=== PATIENT | female | born 1985 | race Caucasian/White ===

== ENCOUNTER → 2017-06-10 | Outpatient (CLI) | payer OTHER | LOC: FIMAGING 11:17 | PROVIDERS: ATTEND Advanced Practice Midwife | DX: Z31.69 Encounter for other general counseling and advice on procreation (principal) ==

== ENCOUNTER 2017-11-16 17:00 | Inpatient (IN) | payer OTHER ==
[2017-11-16] MEDS ORDERED: LR 1,000 ML IV PRN (17:59)
[2017-11-16] MEDS ORDERED: OLIVE OIL 118 ML BTL MISC PRN (17:59)
[2017-11-16] MEDS ORDERED: EPSOM SALT 454 GM TP PRN (17:59)
[2017-11-16] MEDS ORDERED: MISOPROSTOL 200 MCG TAB PR PRN (17:59)
[2017-11-16] MEDS ORDERED: TERBUTALINE SULFATE 1 MG/ML VIAL IV PRN (17:59)
[2017-11-16] MEDS ORDERED: LIDOCAINE 1% 300 MG/30 ML SDV SC PRN (17:59)
[2017-11-16] MEDS ORDERED: OXYTOCIN/NORMAL SALINE 1,000 ML IV PRN (17:59)
[2017-11-16] MEDS ORDERED: AMMONIA AROMATIC 1 EACH AMP IH ONE (18:08)
[2017-11-16] MEDS ORDERED: LIDOCAINE 1% 300 MG/30 ML SDV ONE (18:08)
[2017-11-16] MEDS ORDERED: OLIVE OIL 118 ML BTL ONE (18:08)
[2017-11-16] MEDS ORDERED: TERBUTALINE SULFATE 1 MG/ML VIAL ONE (18:08)
[2017-11-16] MEDS ORDERED: OXYTOCIN 10 UNIT/ML VIAL ONE (18:09)
[2017-11-16] MEDS ORDERED: MISOPROSTOL 200 MCG TAB ONE (18:09)
[2017-11-16 18:20] LABS: PLATELET COUNT 234 10^3/uL (150-400)
[2017-11-16] MEDS ORDERED: ONDANSETRON 4 MG/2 ML VIAL IVP PRN (18:29)
--- NOTE | 2017-11-16 19:21 | PDGENHP ---
History and Physical - Chief Complaint contractions and leakage of fluid - History of Present Illness 32 at 39w2d by LMP c/w 6w4d US, here with contractions and loss of fluid at 1500 today. Has been having contractions intermittently since 0500. Intensity increases after SROM at 1500. No ssx PIH. Uncomplicated course. Hx of MTHFR mutation homozygous. Per MFM - no hx of thrombosis, so no recommendation for lovenox. Was on baby asa earlier in and 1400mcg Folate. Here with male partner, Deion, and 2 other females. Has some anxiety about prior delivery, had epidural, pushed for 3 hours, and had forceps assisted delivery with many tears which made for a long recovery. Desires natural delivery. labs: Innatal and standard panel neg 12.8 / 36.9 plts 232 A neg Ab scr neg gluc 70 RPR NR Rub Imm HbsAG neg HIV neg GC neg afp neg 1 hr GTT 87 History Information - Allergies/Home Medication List Allergies/Adverse Reactions: penicillin Allergy (Verified 03/08/15 17:30) Home Medications: 1 tab PO DAILY 09/28/15 [Last Taken 11/15/17 12:00] I have personally reviewed and updated: family history, medical history, social history, surgical history Past Medical History: MTHFR mutation homozygote, no hx of thrombosis. Hx of anxiety and was on Celexa - Past Medical History no pertinent PMH - Surgical History Additional surgical history: sinus surgery. wisdom teeth - Family History Positive for: diabetes type II (mat aunt), hypertension (mother and MGM) - Social History Smoking Status: Former smoker Alcohol Use: None Drug Use: None Review of Systems Review of Systems: Physical Exam Physical Exam: Pleasant, NAD when not antoni VSS afeb 36.2 96 135/59 Constitutional: appears nourished Ears, Nose, Mouth, Throat: moist mucous membranes, hearing normal Cardiovascular: regular rate and rhythym, no murmur, rub, or gallop Respiratory: clear to auscultation Gastrointestinal: other (gravid, fundus NT when not antoni) Genitourinary: other Skin: warm, normal color Musculoskeletal: full muscle strength Neurologic: AAOx3 Psychiatric: interacting appropriately Lab Data & Imaging Review 11/16/17 17:50 WBC 10.61 10^3/uL (3.80-9.50) H 11/16/17 17:50 RBC 4.23 10^6/uL (4.18-5.33) 11/16/17 17:50 Hgb 13.4 g/dL (12.6-16.3) 11/16/17 17:50 Hct 38.7 % (38.0-47.0) 11/16/17 17:50 MCV 91.5 fL (81.5-99.8) 11/16/17 17:50 MCH 31.7 pg (27.9-34.1) 11/16/17 17:50 MCHC 34.6 g/dL (32.4-36.7) 11/16/17 17:50 RDW 13.0 % (11.5-15.2) 11/16/17 17:50 Plt Count 234 10^3/uL (150-400) 11/16/17 17:50 MPV 10.3 fL (8.7-11.7) 11/16/17 17:50 Neut % (Auto) 68.4 % (39.3-74.2) 11/16/17 17:50 Lymph % (Auto) 20.3 % (15.0-45.0) 11/16/17 17:50 Castro % (Auto) 8.5 % (4.5-13.0) 11/16/17 17:50 Eos % (Auto) 1.4 % (0.6-7.6) 11/16/17 17:50 Baso % (Auto) 0.6 % (0.3-1.7) 11/16/17 17:50 Nucleat RBC Rel Count 0.0 % (0.0-0.2) 11/16/17 17:50 Absolute Neuts (auto) 7.27 10^3/uL (1.70-6.50) H 11/16/17 17:50 Absolute Lymphs (auto) 2.15 10^3/uL (1.00-3.00) 11/16/17 17:50 Absolute Monos (auto) 0.90 10^3/uL (0.30-0.80) H 11/16/17 17:50 Absolute Eos (auto) 0.15 10^3/uL (0.03-0.40) 11/16/17 17:50 Absolute Basos (auto) 0.06 10^3/uL (0.02-0.10) 11/16/17 17:50 Absolute Nucleated RBC 0.00 10^3/uL (0-0.01) 11/16/17 17:50 Immature Gran % 0.8 % (0.0-1.1) 11/16/17 17:50 Immature Gran # 0.08 10^3/uL (0.00-0.10) 11/16/17 17:50 Assessment & Plan Assessment: 32 at 39w2d in labor, uncomplicated course. Plan: Expectant mgmt - anticipate vaginal delivery
[2017-11-16] MEDS ORDERED: DOCUSATE SODIUM 100 MG CAP PO PRN (20:08)
[2017-11-16] MEDS ORDERED: SIMETHICONE 80 MG TAB CHEW PO PRN (20:08)
[2017-11-16] MEDS ORDERED: ACETAMINOPHEN 325 MG TAB PO PRN (20:08)
[2017-11-16] MEDS ORDERED: HYDROCORTISONE 0.5% CREAM TP PRN (20:08)
--- NOTE | 2017-11-16 20:13 | OBDEL ---
Info Type: Vaginal Presentation at Delivery: Vertex L&D Analgesia/Anesthesia Type: Local GBS+: No Intrapartum Medications: Generic Name Dose Route Start Last Admin Trade Name Freq PRN Reason Stop Dose Admin Lactated Ringer's 1,000 mls @ 0 mls/hr 11/16/17 17:59 11/16/17 19:46 Lr IV 11/17/17 17:58 1,000 mls PRN PRN Administration SEE PROTOCOL CONDITIONS Protocol Per Protocol Lidocaine HCl 300 mg 11/16/17 17:59 11/16/17 19:47 Lidocaine Hcl 1% SC 05/15/18 17:58 300 mg ONCE PRN Administration episiotomy [place] Oil 118 ml 11/16/17 17:59 11/16/17 19:38 Sweet Oil MISC 05/15/18 17:58 1 btl ONCE PRN Administration perineal massage Ondansetron HCl 4 mg 11/16/17 18:29 11/16/17 18:35 Zofran IVP 05/15/18 18:28 4 mg Q4HRS PRN Administration Nausea/Vomiting, Can't Take PO - Hospital Course Intrapartum: 11/16/17 20:10 Uncomplicated. Progressed naturally, AROM of forebag at 8 cm dilated. Indications for Delivery: Spontaneous Labor, SROM Vaginal Delivery - Delivery Provider Delivery Physician/CNM: Nicky Ortega - Labor and Delivery Onset of Contractions Date: 11/16/17 Onset of Contractions Time: 05:00 Onset of Contractions Type: Spontaneous Rupture of Membranes Date: 11/16/17 Rupture of Membranes Time: 15:00 Rupture of Membranes Type: Spontaneous Amniotic Fluid Color: Clear Dilation Complete Date: 11/16/17 Dilation Complete Time: 19:35 Placenta Delivery Date: 11/16/17 Placenta Delivery Time: 19:50 Total Hours of Labor: 14 Non-surgical Procedures: Amniotomy (of forebag) Laceration: 2nd Degree Repair: 3-0, Vicryl Vaginal Sponge Count Correct: Yes Vaginal Needle Count Correct: Yes Vaginal Sweep Performed: Yes EBL: 300 Delivery Events: None Delivery Comment: uncomplicated unmedicated delivery. Repair of 2nd degree lac after infiltration of 10ml of 1% lidocaine. - Medications Labor Augmentation/Induction Methods Used: None Data [place]: 11/21/17 Gestational Age: 39 week(s) and 2 day(s) Vazquez Delivery Date: 11/16/17 Delivery Time: 19:40 Sex of : Male Score (1 Min): 8 Score (5 Min): 9 Shoulder Dystocia Time Head Delivered: 19:39 Time Body Delivered: 19:40 ICD10 Worksheet Patient Problems: Problems Problem Status Onset (normal spontaneous vaginal delivery) Acute labor Acute - ICD10 Problem Qualifiers (1) (normal spontaneous vaginal delivery)
[2017-11-16] MEDS ORDERED: OXYTOCIN 10 UNIT/ML VIAL IV ONE (20:16)
[2017-11-16] MEDS: IBUPROFEN 600 MG TAB PO PRN (20:43)
[2017-11-17] MEDS: IBUPROFEN 600 MG TAB PO PRN ×2 (02:29→21:46)
--- NOTE | 2017-11-17 19:00 | OBPP ---
Progress Note Assessment/Plan: Assessment: PPD1 s/p . Doing very well, no acute issues. No post- labs ordered. Likely home tomorrow - RhoGam/MMR if indicated. Uncomplicated course. Hx of MTHFR mutation homozygous. Per MFM - no hx of thrombosis, so no recommendation for lovenox ante or PP. Was on baby asa earlier in and 1400mcg Folate. labs: Innatal and standard panel neg 12.8 / 36.9 plts 232 A neg Ab scr neg gluc 70 RPR NR Rub Imm HbsAG neg HIV neg GC neg afp neg 1 hr GTT 87 JM Subjective/ Course: 11/17/17 18:58 Laila and partner doing well in bed with baby this AM. going well. Pain well controlled, tolerating diet, up and around without issue. Would like to stay until tomorrow. Objective: 11/16/17 17:50 Patient ABO/Rh A NEGATIVE 11/16/17 17:50 Temp Pulse Resp BP Pulse Ox 35.9 C L 78 16 110/68 94 11/17/17 08:00 11/17/17 08:00 11/17/17 08:00 11/17/17 08:00 11/17/17 02:30 Uterine Position/Fundal Height: At Umbilicus Uterine Tone: Firm
[2017-11-18 08:22] VITALS: BP 95/66
--- NOTE | 2017-11-18 08:33 | OBGCSDC ---
General Delivery Information - General Info : 2 Para: 2 Abortions: 0 Type: Vaginal L&D Analgesia/Anesthesia Type: Local Admission Date: 11/16/17 Labs: Patient ABO/Rh A NEGATIVE 11/16/17 17:50 Hct 38.7 % (38.0-47.0) 11/16/17 17:50 - Hospital Course Intrapartum: 11/16/17 20:10 Uncomplicated. Progressed naturally, AROM of forebag at 8 cm dilated. : 11/17/17 18:58 Laila and partner doing well in bed with baby this AM. going well. Pain well controlled, tolerating diet, up and around without issue. Would like to stay until tomorrow. 11/18/17 08:32 S) Pt doing well, reports min pain and bleeding. she is ambulating and voiding without difficulty. She is . She desires discharge home today. O) VSS, afebrile constitutional: WNWF, A&Ox3 HEENT: normocephalic, atraumatic, supple Heart: RRR, No murmur Chest: CTA-B Abdomen: Soft, nontender Uterus: Firm at U-2 Lochia: Minimal rubra Perineum: Intact, healing well Extremities: Trace edema, and negative Vy's sign Neuro: Grossly normal A) 32 year-old S/P PPD#2 P) Discharge home today Continue Pelvic rest x6wks Discussed danger signs (infection, preeclampsia, depression, heavy bleeding, etc) RTO in 4/6 weeks 11/18/17 09:33 Vaginal - Delivery Provider Delivery Physician/CNM: Nicky Ortega - Diagnosis Labor: Spontaneous Rupture of Membranes Type: Spontaneous Amniotic Fluid Color: Clear Laceration: 2nd Degree Repair: 3-0, Vicryl Delivery Events: None - Procedures Non-surgical Procedures: Amniotomy (of forebag) - Delivery Non-surgical Procedures: Amniotomy (of forebag) EBL: 300 Data [place]: 11/21/17 Gestational Age: 39 week(s) and 4 day(s) Vazquez Delivery Date: 11/16/17 Delivery Time: 19:40 Sex of Infant: Male Weight (gm): 3916 kg Score (1 Min): 8 Score (5 Min): 9 Discharge Information - Discharge Information Condition: Good Instruction/Follow Up: See Instruction Sheet (Instructed on routine PP care, pelvic rest X 6 weeks, post warning signs reviewed), Four Weeks, Six Weeks
== END 2017-11-18 10:35 | disposition home or self-care (01) | DRG 775 ==
LOC: FLD 17:00 → OBSVTOIN 17:00 → FOB 21:51
PROVIDERS: ADMIT Hospitalist; ATTEND Hospitalist
PROC: 10E0XZZ Delivery of Products of Conception, External Approach (ICD-10-PCS; principal; 2017-11-16)
PROC: 0HQ9XZZ Repair Perineum Skin, External Approach (ICD-10-PCS; principal; 2017-11-16)
PROC: 10907ZC Drainage of Amniotic Fluid, Therapeutic from Products of Conception, Via Natural or Artificial Opening (ICD-10-PCS; principal; 2017-11-16)
DX: O70.1 Second degree perineal laceration during delivery (principal); Z87.891 Personal history of nicotine dependence; Z3A.39 39 weeks gestation of pregnancy; Z37.0 Single live birth
CPT/HCPCS: J2405; J2590; J3105